=== PATIENT | male | born 1950 | race Two or more races ===

== ENCOUNTER 2018-10-09 09:36 | Outpatient (CLI) | payer OTHER ==
[~2018-10-09 09:36] MED LIST: ASA325 MG PO; DIGOX250 MCG PO; LIPITOR80 MG PO; METFORMIN HCL1000 MG PO; METOPROLOL TART50 MG PO; NEURONTIN300 MG PO
== END 2018-10-09 09:41 | disposition home or self-care (01) ==
LOC: RAD 09:36
DX: M54.5 Low back pain (principal)

== ENCOUNTER 2020-10-04 10:35 | Outpatient (CLI) | payer OTHER | END 2020-10-04 11:52 | disposition home or self-care (01) | LOC: RAD 10:35 | PROVIDERS: ATTEND Orthopaedic Surgery | DX: M25.561 Pain in right knee (principal); M25.562 Pain in left knee; M25.551 Pain in right hip; M25.552 Pain in left hip ==

== ENCOUNTER 2020-10-04 11:45 | Outpatient (CLI) | payer OTHER | END 2020-10-04 11:54 | disposition home or self-care (01) | LOC: NUCLEAR 11:45 | PROVIDERS: ATTEND Orthopaedic Surgery | DX: M81.0 Age-related osteoporosis without current pathological fracture (principal) ==